=== PATIENT | female | born 1960 ===

== ENCOUNTER 2021-06-23 06:27 | Day surgery (SDC) | payer OTHER ==
[~2021-06-23 06:27] MED LIST: ZIAC 5-6.25 MG1 EACH PO
== END 2021-06-23 15:19 | disposition home or self-care (01) ==
LOC: CIR.AMB 06:27
PROVIDERS: ATTEND Obstetrics & Gynecology Gynecologic Oncology
DX: N83.8 Other noninflammatory disorders of ovary, fallopian tube and broad ligament (principal); Z14.8 Genetic carrier of other disease